=== PATIENT | male | born 1980 | race Caucasian/White ===

== ENCOUNTER → 2023-09-07 | Outpatient (CLI) | payer OTHER ==
[2023-09-07 10:10] LABS: ALBUMIN 4.4 g/dL (3.5-5.0)
[2023-09-07 10:11] LABS: CALCIUM 9.4 mg/dL (8.3-10.5)
[2023-09-07 10:12] LABS: TOTAL PROTEIN 6.7 g/dL (6.4-8.3)
[2023-09-07 10:14] LABS: TOTAL BILIRUBIN 0.31 mg/dL (0.2-1.2)
== END ==
LOC: LAB 09:43
PROVIDERS: Internal Medicine
DX: E78.2 Mixed hyperlipidemia (principal)